=== PATIENT | male | born 1950 | race Caucasian/White ===

== ENCOUNTER 2023-04-10 09:55 | Emergency (ER) | payer MEDICARE, OTHER ==
[~2023-04-10] VITALS: Ht 177.8 cm; Wt 75.8 kg
[~2023-04-10 09:55] MED LIST: ASPIRIN325 MG PO; FOLIC ACID1 MG PO; MELATONIN10 M3 PO; MOTRIN IB200 MG PO; OMEPRAZOLE20 MG PO; OXYCODON-ACETA1 EAC2 PO; TYLENOL325 MG PO; ZEBETA5 MG PO
--- OUTSIDE RECORDS SUMMARY | 2023-04-10 09:58 | XMS ---
PreManage Notification: KATIE QUEVEDO Security [employer] [place] Events No recent Security Events currently on file [facility] MET [facility] There are no care providers on record at this time. Nigel has no Care Guidelines for this patient. Antonio VISIT COUNT (12 MO.) 1 HAILEE Corona TOTAL 1 NOTE: Visits indicate total known visits. ED/UCC VISIT TRACKING (12 MO.) 04/10/2023 09:56 HAILEE Garcia OR TYPE: Emergency COMPLAINT: - CHEST PAIN INPATIENT VISIT TRACKING (12 MO.) No inpatient visits to display in this time frame [email or web address]
[2023-04-10] MEDS ORDERED: ROSUVASTATIN CA40 MG PO (10:17)
[2023-04-10] MEDS ORDERED: AMLODIPINE BESYL5 MG PO (10:17)
[2023-04-10] MEDS ORDERED: ZOLPIDEM TARTRA10 MG PO (10:17)
[2023-04-10] MEDS ORDERED: BISOPROLOL FUMAR5 MG PO (10:18)
[2023-04-10 10:20] LABS: BASOPHILS 0.8 % (0-2); EOSINOPHILS 1.1 % (0-6); HEMATOCRIT 41.7 % (35.0-50.0); HEMOGLOBIN 14.2 g/dL (12.0-18.0); LYMPHOCYTES 15.5 % (24-44); MCH 31.7 (27-36); MCHC 34.1 g/dl (30-36); MCV 93.1 fl (81-99); MONOCYTES 9.6 % (0-12); PLATELET COUNT 175 K/uL (140-440); RBC 4.48 M/ul (4.3-5.7); RDW 13.8 (10.5-15.0)
[2023-04-10 10:28] VITALS: BP 135/92
[2023-04-10 10:28] LABS: INR 0.98 (0.80-1.30); PROTIME 12.6 Sec (11.2-14.2)
[2023-04-10 10:31] LABS: PARTIAL THROMBOPLASTIN TIME 33.4 Sec (22.9-41.3)
[2023-04-10 10:35] LABS: ALBUMIN 3.6 g/dL (3.4-5.0); ANION GAP 15.7 (7-21); BILIRUBIN, TOTAL 0.5 ng/dL (0.2-1.0); BUN/CREATININE RATIO 16.34 (6.0-28.6); CALCIUM 9.2 mg/dL (8.5-10.1); CREATININE, SERUM 1.04 mg/dL (0.70-1.30); MAGNESIUM 1.9 mg/dL (1.8-2.4); POTASSIUM 3.7 mmol/L (3.5-5.1); PROTEIN, TOTAL 7.2 g/dL (6.4-8.2)
[2023-04-10 11:03] LABS: INFLUENZA B NAA NEGATIVE (NEGATIVE); RESPIRATORY SYNCYTIAL VIR NAA NEGATIVE (NEGATIVE)
--- NOTE | 2023-04-11 20:10 | EKG ---
[facility] [address] [place] [address] Signed Sinus rhythm with premature atrial complexes with aberrant conduction Inferior infarct , age undetermined Anterior infarct , age undetermined Abnormal ECG No previous ECGs available Confirmed by Han Holguin MD () on 04/11/2023 8:10:27 PM Electronically Signed By: HAN HOLGUIN MD 04/11/232009 PATIENT NAME: KATIE QUEVEDO Electrocardiogram DATE OF : 46 PHYSICIAN: HAN HOLGUIN MD REPORT #: [id number] REPORT IS CONFIDENTIAL AND NOT TO BE RELEASED WITHOUT AUTHORIZATION
--- NOTE | 2023-04-11 20:17 | EKG ---
[facility] [address] [place] [address] Signed Normal sinus rhythm Inferior infarct , possibly acute ST \T\ T wave abnormality, consider lateral ischemia ACUTE [place] / STEMI Consider right ventricular involvement in acute inferior infarct Abnormal ECG When compared with ECG of 10-APR-2023 08:50, possible inferior infact is now present, with lateral ST depressions Confirmed by Han Holguin MD () on 04/11/2023 8:16:52 PM Electronically Signed By: HAN HOLGUIN MD 04/11/232016 PATIENT NAME: KATIE QUEVEDO Electrocardiogram DATE OF : 46 PHYSICIAN: HAN HOLGUIN MD REPORT #: [id number] REPORT IS CONFIDENTIAL AND NOT TO BE RELEASED WITHOUT AUTHORIZATION
== END 2023-04-10 10:39 | disposition short-term general hospital (02) ==
LOC: ED 09:55
PROVIDERS: Emergency Medicine
DX: I21.3 ST elevation (STEMI) myocardial infarction of unspecified site (principal); Z79.899 Other long term (current) drug therapy
CPT/HCPCS: 36415; 71045; 80053; 83735; 84484; 85025; 85610; 85730; 87502; 93005; 93010; 96374; 99285-25; J1644; U0002